=== PATIENT | male | born 1990 | race African-American/Black ===

== ENCOUNTER 2017-12-21 11:13 | Emergency (ER) | payer SELFPAY ==
[~2017-12-21] VITALS: Ht 177.8 cm; Wt 81.6 kg
[2017-12-21] VITALS (24 sets, daily range): BP systolic 120–158; BP diastolic 56–82
[2017-12-21] MEDS ORDERED: DiphenhydrAMINE 50mg/ml Inj IM ONE (12:30)
[2017-12-21] MEDS ORDERED: LORazepam Inj 2mg/ml 1ml IM ONE (12:30)
[2017-12-21] MEDS ORDERED: Haloperidol 5mg/ml Inj IM ONE (12:30)
--- NOTE | 2017-12-21 14:06 | Emergency Room Report ---
History of Present Illness General Chief Complaint: Altered Mental Status Source: EMS (Konrad Monterroso MD) Present Illness HPI Patient is a approximate 34-year-old male brought in by EMS after increased altered mental status. Patient was had noted be somewhat agitated. He is found walking in the middle of the street. The patient subsequently began taking off his clothing when [employer] arrival. The patient was noted to be somewhat confused and agitated. History is markedly limited by patient's mental status. (Konrad Monterroso MD) Allergies: Coded Allergies: UNABLE TO ASSESS (Unverified , 12/21/17) Patient History Past Medical History: see triage record Reviewed Nursing Documentation: PMH: Agreed; PSxH: Agreed (Konrad Monterroso MD) Nursing Documentation-PMH Past Medical History: Deferred (Konrad Monterroso MD) Review of Systems All Other Systems: negative except mentioned in HPI (Konrad Monterroso MD) Physical Exam Vital Signs Date Time Temp Pulse Resp B/P (MAP) Pulse Ox O2 Delivery O2 Flow Rate FiO2 12/21/17 11:02 98.0 140 20 149/72 96 Room Air 98.1 Sp02 EP Interpretation: reviewed, normal General Appearance: alert/responsive, no apparent distress, GCS 15, non-toxic Head: atraumatic Eyes: PERRL, lids + conjunctiva normal ENT: hearing intact, no angioedema Neck: supple/symm/no masses, no meningismus Respiratory: effort normal, no wheezing, chest symmetrical Cardiovascular: regular rate, rhythm, no edema Cardiovascular #2: 2+ carotid (R), 2+ carotid (L), 2+ dorsalis pedis (R), 2+ dorsalis pedis (L) Gastrointestinal: non-tender, no mass, non-distended, no rebound/guarding, normal bowel sounds Musculoskeletal: gait & station normal, strength & tone normal, normal ROM, non -tender Neurologic: normal inspection, CN II-XII intact, oriented x3, sensory intact, normal speech Skin: no rash, well hydrated Lymphatic: normal inspection (Konrad Monterroso MD) Medical Decision Making Restraint Attestation I, Konrad Monterroso MD, have personally evaluated this patient. Laboratory tests have been reviewed and addressed accordingly. The patient is deemed to present a danger to themselves and/or others. This is based on the exam, history ( provided by patient, EMS/[employer] and/or family) and observed or reported behavior. Attempts for non-invasive measures have been considered and/or attempted, however, have been futile. It is in the best interest of the nursing staff, the patient, and others involved in this patient's care that behavioral restraints be applied. Patient evaluation reveals the following: The patient markedly agitation and confusion and combativeness. (Konrad Monterroso MD) Diagnostic Impression: Primary Impression: Altered mental status Qualified Codes: R41.82 - Altered mental status, unspecified Additional Impression: Polysubstance abuse ER Course Patient presented for altered mental status. Differential diagnoses include substance abuse, psychosis, bipolar disorder, depression, malingering. Because of complexity of patient's case laboratory testing and imaging studies were ordered. (Konrad Monterroso MD) ER Course Patient signout to me. He presents 12 hours ago with agitation and altered mental status secondary to polysubstance abuse. He had to be sedated. He been sleeping for several hours now. He is awake now and able to give his name and date of . Not suicidal homicidal. No delusion or hallucination at this point. No criteria for 5150. We'll discharge home. This patient is a chronic risk of self injury due to poor impulse control, limited coping skills, and judgment intermittently impaired by intoxication. I believe that the available clinical evidence to suggest that these characteristics derived primarily from personality disorder and are likely very stable over time. Hospitalization would likely attenuate risk of self-harm only during [facility] period, without lasting risk reduction. Serious self-harm , while possible, would likely be inadvertent, and because of impulsivity, and foreseeable. For these reasons, I do not believe hospitalization would provide meaningful reduction in risk of self-harm. (SHIRA CALVO M.D.) Last Vital Signs Date Time Temp Pulse Resp B/P (MAP) Pulse Ox O2 Delivery O2 Flow Rate FiO2 12/21/17 11:15 98.1 85 20 149/72 96 Room Air 98.1 Status: improved (Konrad Monterroso MD) Status: improved (SHIRA CALVO M.D.) Disposition: HOME, SELF-CARE Condition: Stable Additional Instructions: Stop using drugs. Follow-up with rehabilitation. Follow-up your doctor in a week. Return if worse. Konrad Monterroso MD Dec 21, 2017 14:06 SHIRA CALVO M.D. Dec 21, 2017 23:03
[2017-12-21 14:34] LABS: BASOPHILS % (AUTO) 1.6 % (0.0-2.0); EOSINOPHILS % (AUTO) 2.5 % (0.0-3.0); HEMATOCRIT 47.1 % (42.0-52.0); HEMOGLOBIN 15.3 G/DL (14.2-18.0); LYMPHOCYTES % (AUTO) 27.4 % (20.0-45.0); MEAN CORPUSCULAR VOLUME 87 FL (80-99); MONOCYTES % (AUTO) 10.5 % (1.0-10.0); PLATELET COUNT 280 K/UL (150-450); RED BLOOD COUNT 5.39 M/UL (4.70-6.10); RED CELL DISTRIBUTION WIDTH 12.7 % (11.6-14.8)
[2017-12-21 14:49] LABS: ANION GAP 12 mmol/L (5-15); BLOOD UREA NITROGEN 7 mg/dL (7-18); CALCIUM 8.9 MG/DL (8.5-10.1); CARBON DIOXIDE 28 MMOL/L (21-32); CHLORIDE 103 MMOL/L (98-107); CREATININE 1.1 MG/DL (0.55-1.30); POTASSIUM 3.2 MMOL/L (3.5-5.1); SODIUM 142 MMOL/L (136-145)
[2017-12-21 14:57] LABS: ALANINE AMINOTRANSFERASE 52 U/L (12-78); ALBUMIN 3.7 G/DL (3.4-5.0); ALBUMIN/GLOBULIN RATIO 1.2 (1.0-2.7); ALKALINE PHOSPHATASE 70 U/L (46-116); ASPARTATE AMINO TRANSFERASE 49 U/L (15-37); BILIRUBIN,TOTAL 0.7 MG/DL (0.2-1.0)
[2017-12-22 00:35] VITALS: BP 126/84
[2017-12-22 00:48] VITALS: BP 126/84
== END 2017-12-22 00:45 | disposition home or self-care (01) ==
LOC: EDBD 11:13 → EMR 11:52 → EDBD 11:52 → EMR 12-22 00:45
DX: R41.82 Altered mental status, unspecified (principal); F19.10 Other psychoactive substance abuse, uncomplicated; F17.200 Nicotine dependence, unspecified, uncomplicated; L98.9 Disorder of the skin and subcutaneous tissue, unspecified
CPT/HCPCS: 36415; 80053; 80307; 84484; 85025; 96372; 99284; G0480; J1200; J1630; 80329